=== PATIENT | female | born 1990 | race Two or more races ===

== ENCOUNTER 2019-05-11 17:18 | Emergency (ER) | payer OTHER ==
[~2019-05-11] VITALS: Ht 167.6 cm; Wt 54.9 kg
[2019-05-11 17:20] VITALS: BP 138/76
== END 2019-05-11 20:04 | disposition home or self-care (01) ==
LOC: ER 17:18
DX: R00.2 Palpitations (principal); R07.89 Other chest pain; F12.90 Cannabis use, unspecified, uncomplicated
CPT/HCPCS: 71045-TC

== ENCOUNTER 2019-07-11 23:39 | Emergency (ER) | payer OTHER ==
[~2019-07-11] VITALS: Ht 167.6 cm; Wt 56.7 kg
[2019-07-11 23:39] VITALS: BP 114/66
--- NOTE | 2019-07-12 00:50 | NUR ---
Patient discharged to home in stable condition. Written and verbal after care instructions given. Patient verbalizes understanding of instruction. Pt ambulatory with a steady gait
== END 2019-07-12 00:51 | disposition home or self-care (01) ==
LOC: ER 23:41
DX: M54.2 Cervicalgia (principal); M25.512 Pain in left shoulder; M25.552 Pain in left hip; V49.59XA Passenger injured in collision with other motor vehicles in traffic accident, initial encounter; Y93.89 Activity, other specified; Y92.413 State road as the place of occurrence of the external cause; Y99.8 Other external cause status